=== PATIENT | male | born 1965 | race African-American/Black ===

== ENCOUNTER 2023-01-18 08:28 | Outpatient (CLI) | payer OTHER, MEDICARE | END 2023-01-18 08:29 | disposition home or self-care (01) | LOC: RAD 08:28 | PROVIDERS: ATTEND Internal Medicine Critical Care Medicine | DX: R06.00 Dyspnea, unspecified (principal) | CPT/HCPCS: 71046 ==

== ENCOUNTER 2023-06-28 12:51 | Inpatient (IN) | payer OTHER ==
[2023-06-28 15:12] VITALS: BMI 40.1
[2023-06-28] MEDS ORDERED: Acetaminophen 325 MG TAB PO PRN (15:26)
[2023-06-28] MEDS ORDERED: Calcium Carbonate 500 MG ChewTAB PO PRN (15:26)
[2023-06-28] MEDS ORDERED: Senokot S 8.6-50 MG TAB PO PRN (15:26)
[2023-06-28] MEDS ORDERED: Ondansetron ODT 4 MG TAB PO PRN (15:26)
[2023-06-28] MEDS ORDERED: Ondansetron PF 4 MG/2 ML Vial IVP PRN (15:26)
[2023-06-28] MEDS ORDERED: Insulin Regular 300 UNITS/3 ML VIAL SC PRN ×2 (15:32)
[2023-06-28] MEDS ORDERED: Dextrose 50% Abboject 50 ML SYRINGE SLOW IVP PRN (15:32)
[2023-06-28] MEDS ORDERED: Glucagon 1 MG/ML KIT IM PRN (15:32)
[2023-06-28] MEDS ORDERED: Dextrose 5% in Water 1,000 ML IV PRN (15:32)
[2023-06-28] MEDS ORDERED: Ipratropium/Albuterol 3 ML NEB NEB PRN (15:56)
[2023-06-28 16:03] LABS: Troponin I Less than 0.010 ng/mL (< 0.028)
[2023-06-28] MEDS ORDERED: HYDROcodone/Acetaminophen 10/325 mg Tablet PO PRN (16:49)
[2023-06-28] MEDS ORDERED: HYDROcodone/Acetaminophen 10/325 mg Tablet PO SCH (18:00)
[2023-06-28] MEDS ORDERED: Insulin Glargine 30 UNITS/0.3 ML VIAL SC SCH (21:00)
[2023-06-28] MEDS: Pantoprazole 40 MG VIAL IVP SCH (21:25)
[2023-06-28] MEDS: Atorvastatin Calcium 10 MG TAB PO SCH (21:25)
[2023-06-28] MEDS: Montelukast Sodium 10 mg Tablet PO SCH (21:25)
[2023-06-28] MEDS: Latanoprost 0.005% Ophth Soln 2.5 ml Bottle L EYE SCH (21:40)
[2023-06-29] MEDS ORDERED: Regadenoson 0.4 MG/5 ML SYRINGE ONE (10:43)
[2023-06-29] MEDS: Pantoprazole 40 MG VIAL IVP SCH ×2 (11:27→21:06)
[2023-06-29] MEDS: Lisinopril 20 MG TAB PO SCH (11:27)
[2023-06-29] MEDS: Aspirin 81 mg Enteric Coated Tablet PO SCH (11:28)
[2023-06-29] MEDS ORDERED: Insulin Glargine 30 UNITS/0.3 ML VIAL SC SCH (21:00)
[2023-06-29] MEDS: Atorvastatin Calcium 10 MG TAB PO SCH (21:07)
[2023-06-29] MEDS: Latanoprost 0.005% Ophth Soln 2.5 ml Bottle L EYE SCH (21:07)
[2023-06-29] MEDS: Montelukast Sodium 10 mg Tablet PO SCH (21:07)
[2023-06-30] MEDS: Pantoprazole 40 MG VIAL IVP SCH (08:40)
[2023-06-30] MEDS: Aspirin 81 mg Enteric Coated Tablet PO SCH (08:40)
[2023-06-30] MEDS: Lisinopril 20 MG TAB PO SCH (08:40)
[2023-06-30] MEDS ORDERED: PROPOFOL 200 MG/20 ML VIAL ONE (14:42)
[2023-06-30] MEDS ORDERED: Lidocaine 1% PF 5 ML VIAL ONE (14:42)
[2023-06-30 15:51] VITALS: BP 126/76; TEMP 97.8
== END 2023-06-30 18:37 | disposition home or self-care (01) | DRG 313 ==
LOC: 2SW 14:03 → OBSVTOIN 06-29 11:02
PROVIDERS: ADMIT Hospitalist; ATTEND Internal Medicine
PROC: 0DJ08ZZ Inspection of Upper Intestinal Tract, Via Natural or Artificial Opening Endoscopic (ICD-10-PCS; principal; 2023-06-30)
DX: R07.9 Chest pain, unspecified (principal); Z68.41 Body mass index [BMI] 40.0-44.9, adult; E11.9 Type 2 diabetes mellitus without complications; I10 Essential (primary) hypertension; K21.9 Gastro-esophageal reflux disease without esophagitis; J45.909 Unspecified asthma, uncomplicated; M19.90 Unspecified osteoarthritis, unspecified site; K44.9 Diaphragmatic hernia without obstruction or gangrene; E78.5 Hyperlipidemia, unspecified; E66.01 Morbid (severe) obesity due to excess calories; G47.33 Obstructive sleep apnea (adult) (pediatric); Z98.890 Other specified postprocedural states; Z79.4 Long term (current) use of insulin; Z79.84 Long term (current) use of oral hypoglycemic drugs
CPT/HCPCS: 36415; 36416; 78452; 93017; 94760; A9500; C9113; J1815; J2785